=== PATIENT | male | born 1965 | race Caucasian/White ===

== ENCOUNTER 2023-03-13 21:16 | Emergency (ER) | payer BC ==
[2023-03-13] MEDS ORDERED: Bacitracin Oint 1 GM U/D Packet TOP ONE (22:36)
[2023-03-13] MEDS ORDERED: Lidocaine 1% with EPINEPHrine 1:100,000 50 ML MDV INFILT ONE (22:36)
== END 2023-03-13 22:25 | disposition home or self-care (01) ==
LOC: LB.ED 21:16
DX: S71.112A Laceration without foreign body, left thigh, initial encounter (principal); W22.8XXA Striking against or struck by other objects, initial encounter
CPT/HCPCS: 12002; 99282